=== PATIENT | female | born 1985 | race Asian ===

== ENCOUNTER 2017-01-30 06:05 | Day surgery (SDC) | payer OTHER ==
[~2017-01-30] VITALS: Ht 165.1 cm; Wt 57.6 kg
[2017-01-30 07:49] LABS: ANION GAP 8.7 (8-16); CALCIUM 8.4 mg/dL (8.5-10.1); CARBON DIOXIDE 29.1 mmol/L (21-32); CREATININE 0.8 mg/dL (0.6-1.3); POTASSIUM 3.8 mmol/L (3.5-5.1)
[2017-01-30 08:21] LABS: APPEARANCE,URINE CLEAR (CLEAR); BILIRUBIN,URINE NEGATIVE (NEGATIVE); BLOOD, URINE NEGATIVE (NEGATIVE); COLOR,URINE YELLOW (YELLOW); LEUKOCYTE ESTERASE ,URINE NEGATIVE (NEGATIVE); NITRITE, URINE NEGATIVE (NEGATIVE); PH,URINE 5.5 (5.0-9.0); PROTEIN,URINE NEGATIVE (NEGATIVE); UGLUCOSE NEGATIVE (NEGATIVE); UROBILINOGEN,URINE 0.2 EU/dL (0.2 - 1)
[2017-01-30] MEDS ORDERED: ONDANSETRON 4 MG/2 ML VIAL IVP PRN ×2 (08:45→10:20)
[2017-01-30] MEDS ORDERED: IBUPROFEN 800 MG TAB PO PRN (08:45)
[2017-01-30] MEDS ORDERED: ACETAMINOPHEN/CODEINE 300/30MG 1 TAB PO PRN (08:45)
[2017-01-30] MEDS ORDERED: MORPHINE SULFATE 4 MG/ML SYR IM/IVP PRN (08:45)
[2017-01-30 09:12] LABS: BACTERIA,URINE 1+ /HPF (None Seen); RBC,URINE NONE SEEN /HPF (0-5); SQUAMOUS EPITHELIAL CELL,UR 4-10 (MOD) /LPF (0-3 (FEW)); WBC,URINE 0-5 (RARE) /HPF (0-5)
[2017-01-30] MEDS ORDERED: SEVOFLURANE 250 ML BTL INH ONE (09:57)
[2017-01-30] MEDS ORDERED: LIDOCAINE 2% 100 MG/5 ML SYR IVP ONE (09:57)
[2017-01-30] MEDS ORDERED: PROPOFOL 200 MG/20 ML VIAL IV ONE (09:57)
[2017-01-30] MEDS ORDERED: MIDAZOLAM 2 MG/2 ML VIAL ONE (10:06)
[2017-01-30] MEDS ORDERED: HYDROmorphone 1 MG/ML AMP IVP PRN (10:20)
== END 2017-01-30 12:07 | disposition home or self-care (01) ==
LOC: MDS 06:05 → MMU 06:09 → MDS 12:07
PROVIDERS: ATTEND Obstetrics & Gynecology
DX: Z30.432 Encounter for removal of intrauterine contraceptive device (principal); N92.1 Excessive and frequent menstruation with irregular cycle
CPT/HCPCS: 36415; 58120; 58301; 71010; 80048; 81001; 87086; J0690; J2001; J2250; J2704; J7060; Q0092; J7120